=== PATIENT | female | born 1960 | race Caucasian/White ===

== ENCOUNTER 2022-10-08 08:10 | Inpatient (IN) | payer OTHER ==
[~2022-10-08] VITALS: Ht 160 cm; Wt 117.9 kg
[2022-10-08] MEDS ORDERED: ATORVASTATIN CA10 MG PO (08:56)
[2022-10-14] MEDS ORDERED: ELIQUIS2.5 MG PO (08:23)
[2022-10-14] MEDS ORDERED: DUI500 PO (08:23)
[2022-10-14] MEDS ORDERED: PERCOCET 5-3251 EACH PO (08:35)
== END 2022-10-15 20:51 | DRG 470 ==
LOC: SURH 10-13 05:15 → O/R 10-13 05:15 → SURG 10-13 09:45 → OB/GYN 10-13 17:04 → SURH 10-14 14:29
PROVIDERS: ADMIT Orthopaedic Surgery; ATTEND Orthopaedic Surgery
PROC: 0SRC0J9 Replacement of Right Knee Joint with Synthetic Substitute, Cemented, Open Approach (ICD-10-PCS; principal; 2022-10-13 12:30)
DX: M17.11 Unilateral primary osteoarthritis, right knee (principal); M22.11 Recurrent subluxation of patella, right knee; E66.9 Obesity, unspecified